=== PATIENT | female | born 1970 ===

== ENCOUNTER 2017-01-27 15:24 | Inpatient (IN) ==
[2017-01-27] MEDS ORDERED: 0.9 % Sodium Chloride 500 ML IVC ONE (16:39)
[2017-01-27 17:28] LABS: Basophils % 0.1 %
[2017-01-27 17:29] LABS: Eosinophils # 0.1 K/mcL (0.0-0.6); Eosinophils % 0.6 %; Immature Granulocytes % 1.4 % (0-4); Lymphocytes # 0.6 K/mcL (0.6-4.6); Mean Corpuscular HGB Conc 25.3 g/dL (31.6-35.5); Mean Corpuscular Hemoglobin 22.2 pg (28.0-33.3); Monocytes # 0.5 K/mcL (0.0-1.3); Monocytes % 4.3 %; Neutrophils # 9.8 K/mcL (1.6-8.9); Nucleated Red Blood Cells 0.3 /100 WBC (0); Red Blood Count 2.16 M/mcL (3.82-4.97); Red Cell Distribution Width 24.6 % (11.5-14.5); Segmented Neutrophils % 88.6 %
--- NOTE | 2017-01-27 17:38 | Emergency Department Note ---
START Narrative - START START: I examined this patient and my medical decision-making was reviewed with the ARCHIVES TECHNICIAN/PA/Advanced Practice Nurse/Resident Physician. I agree with the documented findings, disposition and treatment plan as described except to the extent set forth below.
[2017-01-27 17:40] LABS: BUN/Creatinine Ratio 11 (6-26); Blood Urea Nitrogen 7 mg/dL (7-20); Calcium 8.7 mg/dL (8.6-10.8); Carbon Dioxide 23 mEq/L (19-29); Chloride 105 mEq/L (98-109); Glucose 115 mg/dL (70-99); Osmolality,Calculated 283 (280-300); Potassium 3.2 mEq/L (3.5-4.5); Sodium 137 mEq/L (136-145); eGFR For African Americans > 60 (> 60); eGFR For Non-African Americans > 60 (> 60)
[2017-01-27 17:45] LABS: Hemoglobin 4.8 g/dL (11.5-15.4)
[2017-01-27 17:46] LABS: Platelet Count 123 K/mcL (140-400)
--- NOTE | 2017-01-27 17:50 | Emergency Department Note ---
Disposition Clinical Impression: Vaginal bleeding, Anemia Fibroids Qualifiers: Uterine leiomyoma location: unspecified location Qualified Code(s): D25.9 - Leiomyoma of uterus, unspecified Disposition: Admitted As Inpatient Condition: Good Referrals: Magda Ross CNP [Primary Care Provider] - Forms: ED Satisfaction Letter Time of Disposition: 19:50 General Adult HPI - General Chief complaint: ED Vaginal Bleeding Stated complaint: vaginal bleeding Time Seen by Provider: 01/27/17 16:14 Source: patient Mode of arrival: ambulatory Limitations: no limitations Nursing Notes Reviewed: Yes Vital Signs Reviewed: Yes - History of Present Illness HPI Narrative: 46-year-old female with past medical history fibroids presents for worsening vaginal bleeding over the last week and concern for anemia. She states that she is short of breath on exertion similar to when she needed a blood transfusion 2 years ago for her anemia. She states that in the last month she has only had 4 days where she was not on her menses. She states that yesterday in the day before she was using 20-25 pads per day and today is still requiring a pad every 1-2 hours today. She denies any headache, confusion, lightheadedness, chest pain or shortness of breath at rest, cough, abdominal pain, nausea or vomiting, changes in urination or bowel movements, rashes or edema. She has had a workup by hematology a couple years ago for bleeding disorders which was negative. She takes topical progesterone to try and help with the fibroids, it has not been helping recently. Pain Scale: 0 - Related Data Allergies Allergy/AdvReac Type Severity Reaction Status Date / Time No Known Allergies Allergy Verified 01/27/17 16:02 All systems ED: reviewed and negative except as stated. Past Medical History - Past Medical History Attestation: Yes The following information was validated with the patient. Source: patient Medical history: Reports: no medical history Psychiatric history: Reports: no psych history HAIR CUTTER history: Reports: no HAIR CUTTER history - Social History Smoking Status: Current every day smoker Smokeless Tobacco Status: No Alcohol use: Reports: none Drug use: Reports: none Physical Exam - Head Head exam: atraumatic, normocephalic, normal inspection - Eye Mild conjunctival pallor. Pupils equal round and reactive to light bilaterally. - ENT ENT exam: normal exam, normal oropharynx, mucous membranes moist - Neck Neck exam: Present: normal inspection, full ROM, trachea midline - Chest Chest inspection: Present: normal inspection, symmetric chest wall rise - Respiratory Respiratory exam: Clear to auscultation bilaterally without wheezes rales or rhonchi Cardiovascular Cardiovascular exam: Present: regular rate, normal rhythm, normal heart sounds - Abdominal Exam Mild lower abdominal tenderness with palpable tender mass on the right upper uterus. - Extremities Exam Extremities exam: Present: normal inspection, full ROM - Back Exam Back exam: Present: normal inspection, full ROM. Absent: tenderness, CVA tenderness (R), CVA tenderness (L) - Neurological Exam Neurological exam: Present: alert, oriented X3, CN II-XII intact - Psychiatric Psychiatric exam: Present: normal affect, normal mood - Skin Skin exam: Present: warm, dry, intact, pale. - General Limitations: no limitations General appearance: alert, in no apparent distress Course - Reevaluation(s) Reevaluation #1: Notified of hemoglobin of 4.8. 2 units of packed red blood cells ordered. Reevaluation #2: Patient is receiving first unit of packed red blood cells. Awaiting callback from HAIR CUTTER who was paged about [phone]. Pelvic ultrasound concerning for fibroids without any definite signs of uterine cancer. EKG shows sinus tachycardia at 111 with normal axis and intervals. No ST elevation or depression. No T-wave inversions or flattening. No significant change other than rate from 01/13/2015. Time: 19:32 Reevaluation #3: Patient accepted by Dr. Stone. He would like the patient given 40 mg of Megace. He is okay for her to eat and drink this evening until she is resuscitated for possible operation tomorrow. Time: 19:50 Vital Signs Temperature 100.3 F H 01/27/17 16:02 Pulse Rate 123 01/27/17 16:02 Respiratory Rate 14 01/27/17 16:02 Blood Pressure 145/82 01/27/17 16:02 O2 Sat by Pulse Oximetry 100 01/27/17 16:02 Temperature 100.5 F H 01/27/17 18:59 Pulse Rate 107 01/27/17 18:59 Respiratory Rate 16 01/27/17 18:59 Blood Pressure 121/62 01/27/17 18:59 O2 Sat by Pulse Oximetry 100 01/27/17 18:51 Oxygen Delivery Oxygen Delivery Room Air Medical Decision Making - Lab Data Result diagrams: 01/27/17 17:04 01/27/17 17:04 Lab Results 01/27/17 01/27/17 01/27/17 Range/Units 17:04 17:04 17:04 WBC 11.1 (4.3-11.1) K/mcL RBC 2.16 L (3.82-4.97) M/mcL Hgb 4.8 L* (11.5-15.4) g/dL Hct 19.0 L (35.3-44.9) % MCV 88.0 (83.0-100.0) fL MCH 22.2 L (28.0-33.3) pg MCHC 25.3 L (31.6-35.5) g/dL RDW 24.6 H (11.5-14.5) % Plt Count 123 L (140-400) K/mcL MPV 13.0 H (9.4-12.4) fL Immature Gran % 1.4 (0-4) % Seg Neutrophils % 88.6 % Lymphocytes % 5.0 % Monocytes % 4.3 % Eosinophils % 0.6 % Basophils % 0.1 % Neutrophils # 9.8 H (1.6-8.9) K/mcL Lymphocytes # 0.6 (0.6-4.6) K/mcL Monocytes # 0.5 (0.0-1.3) K/mcL Eosinophils # 0.1 (0.0-0.6) K/mcL Basophils # 0.0 (0.0-0.2) K/mcL Nucleated RBCs/100 WBC 0.3 H (0) /100 WBC Platelet Estimate Slight Decrease L (Normal) Polychromasia 3+ A (Not Present) Hypochromasia Present A (Not Present) Anisocytosis 3+ A (Not Present) Sodium 137 (136-145) mEq/L Potassium 3.2 L (3.5-4.5) mEq/L Chloride 105 (98-109) mEq/L Carbon Dioxide 23 (19-29) mEq/L BUN 7 (7-20) mg/dL Creatinine 0.64 (0.57-1.11) mg/dL Est GFR ( Amer) > 60 (> 60) Est GFR (Non-Af Amer) > 60 (> 60) BUN/Creatinine Ratio 11 (6-26) Glucose 115 H (70-99) mg/dL Calculated Osmolality 283 (280-300) Calcium 8.7 (8.6-10.8) mg/dL Serum , Qual Negative (Negative) Blood Type Antibody Screen Crossmatch 01/27/17 Range/Units 17:04 WBC (4.3-11.1) K/mcL RBC (3.82-4.97) M/mcL Hgb (11.5-15.4) g/dL Hct (35.3-44.9) % MCV (83.0-100.0) fL MCH (28.0-33.3) pg MCHC (31.6-35.5) g/dL RDW (11.5-14.5) % Plt Count (140-400) K/mcL MPV (9.4-12.4) fL Immature Gran % (0-4) % Seg Neutrophils % % Lymphocytes % % Monocytes % % Eosinophils % % Basophils % % Neutrophils # (1.6-8.9) K/mcL Lymphocytes # (0.6-4.6) K/mcL Monocytes # (0.0-1.3) K/mcL Eosinophils # (0.0-0.6) K/mcL Basophils # (0.0-0.2) K/mcL Nucleated RBCs/100 WBC (0) /100 WBC Platelet Estimate (Normal) Polychromasia (Not Present) Hypochromasia (Not Present) Anisocytosis (Not Present) Sodium (136-145) mEq/L Potassium (3.5-4.5) mEq/L Chloride (98-109) mEq/L Carbon Dioxide (19-29) mEq/L BUN (7-20) mg/dL Creatinine (0.57-1.11) mg/dL Est GFR ( Amer) (> 60) Est GFR (Non-Af Amer) (> 60) BUN/Creatinine Ratio (6-26) Glucose (70-99) mg/dL Calculated Osmolality (280-300) Calcium (8.6-10.8) mg/dL Serum , Qual (Negative) Blood Type A POSITIVE Antibody Screen NEGATIVE Crossmatch See Detail Critical Care Time Critical Care Time: Yes Total Critical Care Time: 35 Attestation: Critical care time spent in medical management as well as blood transfusions for severe anemia.
[2017-01-27 18:00] LABS: Anisocytosis 3+ (Not Present); Hypochromasia Present (Not Present); Polychromasia 3+ (Not Present)
[2017-01-27 18:01] LABS: Platelet Estimate Slight Decrease (Normal)
[2017-01-27] MEDS ORDERED: 0.9 % Sodium Chloride 250 ML ONE (18:40)
[2017-01-27] MEDS ORDERED: Potassium Citrate 10 MEQ TABLET.ER PO SCH (22:15)
--- NOTE | 2017-01-27 22:18 | OB/GYN History & Physical ---
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 She has orthostatic symptoms. In that she has a long history of fibroids and anemia and was in 2015 admitted with hemoglobin of 4.9 she has been on bioidentical progesterone and iron supplementation. She did see Dr. Zarate who had advised complete hysterectomy she desires ovarian preservation therefore did not follow up again. She has remote history of abnormal Pap smear and had what sounds like cryosurgery aside from the fibroids and bleeding has no other gynecologic history. Patient's uterus is quite enlarged and wide which was at this time would make minimally invasive surgery difficult. Patient really does not want progestational therapy and she would not be a good candidate for Mirena IUD or endometrial ablation because of enlarged fibroid uterus. Did discuss with patient possible Lupron therapy to stop her bleeding and shrink the uterus allowing a better chance of minimally invasive surgery she is interested in this and this will be arranged as an outpatient. (2) Hypokalemia Current visit: Yes Status: Acute Will replace (3) Anemia Current visit: Yes Status: Acute We will transfuse 2 units of packed red blood cells and recheck hemoglobin and hematocrit Qualifiers: Iron deficiency anemia type: chronic blood loss Qualified Code(s): D50.0 - Iron deficiency anemia secondary to blood loss (chronic) (4) Fibroids Current visit: Yes Status: Acute Qualifiers: Uterine leiomyoma location: unspecified location Qualified Code(s): D25.9 - Leiomyoma of uterus, unspecified History of Present Illness Chief complaint: Heavy vaginal bleeding, orthostatic symptoms, known uterine fibroids HPI: Ms. Olivo is a 46 year old female 2 para 2 female presents to emergency room with orthostatic symptoms. She has a long history of uterine fibroids and heavy irregular menses that has progressively worsened over the last 2 months. She states she has been saturating depends and passing clots the size of her fist for the last 6-8 weeks. She changes up to 15 depends a day. She has been on bioidentical egestion cream that was prescribed to her by a [employer] company in [place]. She saw Dr. Elliot Hardy 6 weeks ago enlarged fibroid uterus she desired to proceed with total hysterectomy which she declined because she did not want ovarian removal. She has seen Dr. Zarate several years ago and an ultrasound at that point also showed enlarged fibroid uterus. She did in 2014 and have a hemoglobin of 4.9 received transfusion of 1 unit of packed red blood cells and iron infusion and had not had any other orthostatic symptoms until recently. Of note she has had a negative workup for bleeding disorders. She has been on K2 for bone health 3 times a day ferrous sulfate 3-5 times a day. When seen in the year this evening she did have other orthostatic symptoms and was hypotensive therefore was admitted for transfusion. Ultrasound in the ER did show uterus to be 17.2 x 11.4 x 10.1 cm with a large fibroid and an 8 millimeter endometrial stripe. She had normal ovaries. Of note patient does have low-grade temperature to 100.3 in the ER she has no elevated white count she has no obvious infection. Her uterus is nontender and she has no abnormal vaginal discharge. Past Med Surg Social Fam HX - Past Medical History Source: patient Medical history: other (Urticaria pigmentosa, anemia) Psychiatric history: no psych history - Past Surgical History Surgical History: other (Was taken to the extraction) - Social History Smoking Status: Current every day smoker Smokeless Tobacco Status: No Alcohol use: none Drug use: none Obstetrical History - Pregnancies : 2 Para: 2 Medications and Allergies Docusate [Colace] 100 mg PO DAILY PRN 01/27/17 [History] Ferrous Sulfate 325 mg PO TID 01/27/17 [History] Ferrous Sulfate [Slow Fe] 142 mg PO TID 01/27/17 [History] Progesterone Cream 1 appl TP DAILY 01/27/17 [History] Vitamin K2 100 mcg PO BID 01/27/17 [History] Allergies No Known Allergies Allergy (Verified 01/27/17 16:02) Review of System OB All systems PM: reviewed and no additional remarkable complaints except as stated Exam - Vital Signs Vital signs: Initial Vital Signs Temp Pulse Resp BP Pulse Ox 100.3 F H 123 14 145/82 100 01/27/17 16:02 01/27/17 16:02 01/27/17 16:02 01/27/17 16:02 01/27/17 16:02 - Constitutional Constitutional: well developed - HEENT HEENT: Pallor, Mucus Membranes Dry - Neck Neck exam: full ROM - Lungs Respiratory exam: CTAB - Cardiovascular Cardiovascular exam: RRR - Abdomen Abdomen: Present: bowel sounds normal, mass Abdomen detail: right lower quadrant: tenderness (Enlarged fibroid uterus palpated) - Extremities Extremities exam: full ROM Deep Tendon Reflex Grade: 2+ Normal Results Result Diagrams: 01/27/17 17:04 01/27/17 17:04 Abnormal lab results RBC 2.16 M/mcL (3.82-4.97) L 01/27/17 17:04 Hgb 4.8 g/dL (11.5-15.4) L* 01/27/17 17:04 Hct 19.0 % (35.3-44.9) L 01/27/17 17:04 MCH 22.2 pg (28.0-33.3) L 01/27/17 17:04 MCHC 25.3 g/dL (31.6-35.5) L 01/27/17 17:04 RDW 24.6 % (11.5-14.5) H 01/27/17 17:04 Plt Count 123 K/mcL (140-400) L 01/27/17 17:04 MPV 13.0 fL (9.4-12.4) H 01/27/17 17:04 Neutrophils # 9.8 K/mcL (1.6-8.9) H 01/27/17 17:04 Nucleated RBCs/100 WBC 0.3 /100 WBC (0) H 01/27/17 17:04 Platelet Estimate Slight Decrease (Normal) L 01/27/17 17:04 Polychromasia 3+ (Not Present) A 01/27/17 17:04 Hypochromasia Present (Not Present) A 01/27/17 17:04 Anisocytosis 3+ (Not Present) A 01/27/17 17:04 Potassium 3.2 mEq/L (3.5-4.5) L 01/27/17 17:04 Glucose 115 mg/dL (70-99) H 01/27/17 17:04 All other labs normal.
[2017-01-28 04:05] LABS: Basophils % 0.2 %; Hemoglobin 6.3 g/dL (11.5-15.4); Mean Platelet Volume 11.5 fL (9.4-12.4)
[2017-01-28 04:07] LABS: Eosinophils # 0.1 K/mcL (0.0-0.6); Eosinophils % 1.2 %; Hematocrit 22.1 % (35.3-44.9); Immature Granulocytes % 1.3 % (0-4); Lymphocytes # 0.7 K/mcL (0.6-4.6); Lymphocytes % 6.9 %; Mean Corpuscular HGB Conc 28.5 g/dL (31.6-35.5); Mean Corpuscular Hemoglobin 25.3 pg (28.0-33.3); Mean Corpuscular Volume 88.8 fL (83.0-100.0); Monocytes # 0.6 K/mcL (0.0-1.3); Monocytes % 6.3 %; Nucleated Red Blood Cells 0.2 /100 WBC (0); Platelet Count 100 K/mcL (140-400); Red Blood Count 2.49 M/mcL (3.82-4.97); Red Cell Distribution Width 20.9 % (11.5-14.5); Segmented Neutrophils % 84.1 %
[2017-01-28 04:47] LABS: Anisocytosis 2+ (Not Present); Hypochromasia Present (Not Present); Polychromasia 2+ (Not Present)
[2017-01-28 04:48] LABS: Platelet Estimate Decreased (Normal)
--- NOTE | 2017-01-28 06:10 | Discharge Summary ---
Date of Encounter: 01/28/17 Time of Encounter: 06:11 - Discharge Diagnosis (1) Menometrorrhagia Priority: Primary Status: Acute Comments: Will arrange for Lupron injection prior to LAVH as out pt. (2) Hypokalemia Priority: Secondary Status: Acute (3) Anemia Priority: Secondary Status: Acute Comments: Vaginal bleeding has stoped, will transfuse one more unit PRBC's then trasfuse. Qualifiers: Iron deficiency anemia type: chronic blood loss Qualified Code(s): D50.0 - Iron deficiency anemia secondary to blood loss (chronic) (4) Fibroids Priority: Primary Status: Acute Qualifiers: Uterine leiomyoma location: unspecified location Qualified Code(s): D25.9 - Leiomyoma of uterus, unspecified - Discharge Medications Home Medications: Docusate [Colace] 100 mg PO DAILY PRN 01/27/17 [History] Ferrous Sulfate 325 mg PO TID 01/27/17 [History] Ferrous Sulfate [Slow Fe] 142 mg PO TID 01/27/17 [History] Progesterone Cream 1 appl TP DAILY 01/27/17 [History] Vitamin K2 100 mcg PO BID 01/27/17 [History] Allergies/Adverse Reactions: Allergies No Known Allergies Allergy (Verified 01/27/17 16:02) Data Procedures and tests throughout hospitalization: Laboratory Tests 01/28/17 03:54 WBC 9.5 RBC 2.49 L Hgb 6.3 L D Hct 22.1 L MCV 88.8 MCH 25.3 L MCHC 28.5 L RDW 20.9 H Plt Count 100 L MPV 11.5 Immature Gran % 1.3 Seg Neutrophils % 84.1 Lymphocytes % 6.9 Monocytes % 6.3 Eosinophils % 1.2 Basophils % 0.2 Neutrophils # 8.0 Lymphocytes # 0.7 Monocytes # 0.6 Eosinophils # 0.1 Basophils # 0.0 Nucleated RBCs/100 WBC 0.2 H Platelet Estimate Decreased L Polychromasia 2+ A Hypochromasia Present A Anisocytosis 2+ A Labs on day of discharge: Labs from last 24 hours 01/28/17 03:54 WBC 9.5 RBC 2.49 L Hgb 6.3 L D Hct 22.1 L MCV 88.8 MCH 25.3 L MCHC 28.5 L RDW 20.9 H Plt Count 100 L MPV 11.5 Immature Gran % 1.3 Seg Neutrophils % 84.1 Lymphocytes % 6.9 Monocytes % 6.3 Eosinophils % 1.2 Basophils % 0.2 Neutrophils # 8.0 Lymphocytes # 0.7 Monocytes # 0.6 Eosinophils # 0.1 Basophils # 0.0 Nucleated RBCs/100 WBC 0.2 H Platelet Estimate Decreased L Polychromasia 2+ A Hypochromasia Present A Anisocytosis 2+ A - Impressions No further bleeding, ambulating and still some diziness. Desires transfusion of one more unit PRBC's. Date of admission: 01/27/17 20:01 Primary care physician: Magda Ross - Patient Status Disposition: Home, Self-Care Condition: Good Functional capacity at discharge: independent ambulation Overall status at discharge: patient is progressing back to baseline - Discharge Instructions Follow Up With: Barber Stone MD [Partnered Physician] - Additional Instructions: In 1-2 weeks, hopefully Lupron injection will be arranged before visit. - Diet and Activity Activity: ambulate only with your walker Diet: advance to your usual diet Hospital Course PATTERNMAKER ALL AROUND Time Attestation: Total time spent providing and/or coordinating discharge services: Exam - Constitutional Vitals: Temp Pulse Resp BP Pulse Ox 98.9 F 102 16 112/67 99 01/28/17 04:02 01/28/17 04:02 01/28/17 04:02 01/28/17 04:02 01/28/17 04:02 General appearance IM: A&O X 3 - Respiratory Respiratory exam: Present: CTAB - Cardiovascular Cardiovascular exam IM: Present: RRR - GI/Abdominal GI/Abdominal exam IM: normal bowel sounds - External exam: ecchymosis Uterine Tone: Boggy - Extremities Exam Extremities exam IM: Present: full ROM - Neurological Exam Neurological exam: oriented X3
[2017-01-28 09:31] VITALS: BP 104/54
--- NOTE | 2017-01-28 13:03 | Electrocardiograph Report ---
[address] [address] Test Date: 2017-01-27 Pat Name: Sherin Olivo Department: 102 Room: [facility] Gender: F [employer]pent[employer]: : 1970 Requested By: Lupillo Verma Order Number: [id number] Reading MD: Charlie Rojas MD Measurements Intervals [place] Rate: 111 P: 67 ID: [id number] QRS: 22 QRSD: 89 T: 61 QT: 336 QTc: 401 Interpretive Statements SINUS TACHYCARDIA INDETERMINATE AXIS Electronically Signed On 01-28-2017 13:01:16 EDT by Charlie Rojas MD
== END 2017-01-28 12:50 | disposition home or self-care (01) | DRG 812 ==
LOC: EMEROO 15:24 → 1NENUOBS 15:24 → 1NENUPED 20:50
PROVIDERS: ADMIT Obstetrics & Gynecology; ATTEND Obstetrics & Gynecology

== ENCOUNTER 2017-02-10 21:30 | Inpatient (IN) ==
[2017-02-10] MEDS ORDERED: Ibuprofen 600 MG TABLET PO PRN (22:43)
[2017-02-11] MEDS ORDERED: 0.9 % Sodium Chloride Mini Bag 100 ML ONE (00:58)
[2017-02-11] MEDS: D5% in Lactated Ringers 1,000 ML IVC SCH ×3 (03:46→20:40)
[2017-02-11 07:13] LABS: Hematocrit 21.9 % (35.3-44.9); Hemoglobin 6.3 g/dL (11.5-15.4)
[2017-02-11] MEDS ORDERED: 0.9 % Sodium Chloride 1,000 ML ONE (07:37)
--- NOTE | 2017-02-11 11:00 | Anesthesia Evaluation PreOp ---
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 History: Denies Any Significant HX Other Medical History: Denies Any Significant HX Anesthesia History: Past Anesthesia (denies fh anesthetic complications) Alcohol Use: none Drug use: none Medications and Allergies Ferrous Sulfate 325 mg PO TID 01/27/17 [History] Progesterone Cream 1 appl TP DAILY 01/27/17 [History] Allergies No Known Allergies Allergy (Verified 01/27/17 16:02) - Meds/Allergy Pre-op Review Medications Reviewed: Yes Allergies Reviewed: Yes Beta Blockers on Current Med List: No Anesthesia Results - Labs 02/11/17 07:05 Laboratory Tests 02/09/17 12:14 Sodium 138 Potassium 3.9 Creatinine 0.63 Calcium 8.5 L - Imaging EKG: report reviewed (01/14) Anesthesia Exam Vital Signs/O2 Sat/Glucose, Most Current Temp Pulse Pulse Resp BP Pulse Ox 02/11/17 10:29 98.7 F 89 18 107/67 98 02/11/17 09:55 98.8 F 98 16 120/66 96 02/11/17 08:05 99.1 F 96 16 101/68 97 02/11/17 07:55 98.6 F 96 96 16 103/64 98 02/11/17 07:50 98.6 F 96 16 103/64 98 Height: 1.57 Weight: 92 NPO (# of Hours): >8 - HEENT Pupil (Motor): Pupils equal, EOMI Mallampati: II Teeth: Normal Oral Opening: Greater than 3 - HISTORIC SITE ADMINISTRATOR LOC: Oriented HISTORIC SITE ADMINISTRATOR Motor: Normal RUE, Normal LUE, Normal RLE, Normal LLE, Normal Face HISTORIC SITE ADMINISTRATOR Sensory: Normal: RUE, LUE, RLE, LLE, Face - Cardiac Rhythm: Regular Murmur: None - Pulmonary Breath Sounds: bilateral Clear Respiratory Effort: Symmetrical Anesthesia Assess/Plan ASA Score: 2 (f/u with cbc after 4th unit transfusion. if additional units given, considered dilutional thrombocytopenia and transfuse plts), E Modified [place] Scale for Level of Consciousness: Cooperative, oriented, and tranquil Anesthetic Plan: General Monitoring Plan: Standard Monitors Recovery Plan: PACU
[2017-02-11] MEDS ORDERED: Ringers Solution, Lactated 1,000 ML IVC SCH (11:30)
--- NOTE | 2017-02-11 12:26 | OB/GYN History & Physical ---
Date of Encounter: 02/11/17 Time of Encounter: 12:23 Assessment and Plan (1) Anemia Current visit: Yes Status: Acute Qualifiers: Anemia type: iron deficiency Iron deficiency anemia type: chronic blood loss Qualified Code(s): D50.0 - Iron deficiency anemia secondary to blood loss (chronic) (2) Fibroids Current visit: No Status: Acute Patient's 46-year-old 2 para 2 female with 17 week size fibroid uterus with menometrorrhagia resistant to medical therapy. Discussed with patient options decision made to proceed with laparotomy with supracervical hysterectomy and bilateral salpingectomy. Patient is aware operative risks and desires to proceed with surgery. She has been admitted and transfused down preoperatively with 4 units of packed red blood cells. Qualifiers: Uterine leiomyoma location: unspecified location Qualified Code(s): D25.9 - Leiomyoma of uterus, unspecified (3) Menometrorrhagia Current visit: No Status: Acute History of Present Illness Chief complaint: Menometrorrhagia, profound anemia, 17 week size fibroid uterus HPI: Ms. Olivo is a 46 year old female female with symptomatic fibroid uterus admitted for preop transfusion secondary to profound anemia with hemoglobin of 5.8. Patient with known large fibroid uterus recent hospitalization was initially consult was for anemia to 4.8. Patient has a known enlarged fibroid uterusin previously had profound anemia as well. We initially discussed treatment with Lupron to shrink the uterus however patient elected not to because of side effects. We also discussed Megace which she initially tried however could not tolerate it therefore she now presents with continued heavy bleeding and recurrent anemia for definitive surgical management. She has researched this procedure and does request supracervical hysterectomy she also requests ovarian preservation. Patient has no history of abnormal Pap smears. Past Med Surg Social Fam HX - Past Medical History Source: patient, old records reviewed Medical history: other (Urticaria pigmentosa, anemia) Psychiatric history: no psych history - Past Surgical History Surgical History: other (Was taken to the extraction) - Social History Smoking Status: Current every day smoker Smokeless Tobacco Status: No Alcohol use: none Drug use: none Obstetrical History - Pregnancies : 2 Para: 2 Medications and Allergies Ferrous Sulfate 325 mg PO TID 01/27/17 [History] Progesterone Cream 1 appl TP DAILY 01/27/17 [History] Allergies No Known Allergies Allergy (Verified 01/27/17 16:02) Exam - Vital Signs Vital signs: Initial Vital Signs Temp Pulse BP Pulse Ox 98.9 F 129 134/69 100 02/10/17 22:00 02/10/17 22:00 02/10/17 22:00 02/10/17 22:00 - Constitutional Constitutional: well developed, well nourished - HEENT HEENT: EOMI, PERRL - Neck Neck exam: full ROM - Lungs Respiratory exam: CTAB - Cardiovascular Cardiovascular exam: RRR - Abdomen Abdomen: Present: non tender, mass - Extremities Extremities exam: full ROM - Uterus Uterus exam: Present: enlarged Results Result Diagrams: 02/11/17 07:05 Abnormal lab results Hgb 6.3 g/dL (11.5-15.4) L 02/11/17 07:05 Hct 21.9 % (35.3-44.9) L 02/11/17 07:05 All other labs normal. - VTE Reasons for not Prescribing Prophylaxis: Treatment not Indicated - Low risk for VTE
[2017-02-11] MEDS ORDERED: *HR* Rocuronium Bromide 50 MG/5 ML VIAL ONE (12:54)
[2017-02-11] MEDS ORDERED: Lidocaine -MPF 2% 2 ML VIAL ONE (12:54)
[2017-02-11] MEDS ORDERED: *HR* Midazolam HCl 2 MG/2 ML VIAL ONE (12:54)
[2017-02-11] MEDS ORDERED: *HR* FentaNYL (PF) 100 MCG/2 ML VIAL ONE (12:54)
[2017-02-11] MEDS ORDERED: Lidocaine -MPF 4% 5 ML AMPUL ONE (12:54)
[2017-02-11] MEDS ORDERED: Dexamethasone 4 MG/ML VIAL ONE (12:54)
[2017-02-11] MEDS ORDERED: *HR* Succinylcholine 200 MG/10 ML VIAL IVP ONE (12:54)
[2017-02-11] MEDS ORDERED: Ondansetron 4 MG/2 ML VIAL ONE (12:54)
[2017-02-11] MEDS ORDERED: *HR* Propofol 200 MG/20 ML VIAL IVP ONE ×2 (12:54→15:39)
[2017-02-11] MEDS ORDERED: Neostigmine Methylsulfate 3 MG/3 ML SYRINGE ONE (12:55)
[2017-02-11] MEDS ORDERED: Albuterol 2.5 MG/3 ML NEBULIZER ONE (13:10)
[2017-02-11] MEDS ORDERED: Albuterol 2.5 MG/3 ML NEBULIZER IH ONE (13:27)
[2017-02-11 13:42] LABS: Basophils % 0.3 %; Eosinophils # 0.1 K/mcL (0.0-0.6); Eosinophils % 0.9 %; Hematocrit 27.6 % (35.3-44.9); Lymphocytes # 0.9 K/mcL (0.6-4.6); Lymphocytes % 9.4 %; Mean Corpuscular HGB Conc 29.7 g/dL (31.6-35.5); Mean Corpuscular Hemoglobin 25.4 pg (28.0-33.3); Mean Corpuscular Volume 85.4 fL (83.0-100.0); Mean Platelet Volume 12.4 fL (9.4-12.4); Monocytes # 0.6 K/mcL (0.0-1.3); Neutrophils # 7.9 K/mcL (1.6-8.9); Nucleated Red Blood Cells 0.5 /100 WBC (0); Platelet Count 149 K/mcL (140-400); Red Blood Count 3.23 M/mcL (3.82-4.97); Red Cell Distribution Width 17.2 % (11.5-14.5); Segmented Neutrophils % 82.4 %
[2017-02-11 13:43] LABS: Hemoglobin 8.2 g/dL (11.5-15.4)
[2017-02-11] MEDS ORDERED: *HR* HYDROmorphone 2 MG/ML SYRINGE ONE (14:10)
[2017-02-11] MEDS ORDERED: ceFAZolin 2,000 MG in D5% in Water (Mini-Bag+) 100 ML IVPB ONE (14:57)
[2017-02-11] MEDS ORDERED: *HR* HYDROmorphone (PF) 1 MG/ML SYRINGE ONE (16:17)
[2017-02-11] MEDS: *HR* HYDROmorphone (PF) 1 MG/ML SYRINGE IVP PRN ×6 (16:18→22:45)
[2017-02-11] MEDS ORDERED: *HR* Promethazine 25 MG/ML VIAL IVP PRN (16:18)
--- NOTE | 2017-02-11 16:19 | OB/GYN Procedure Note ---
Hysterectomy - Diagnosis Date of procedure: 02/11/17 Hysterectomy pre-op: menorrhagia, symptomatic leiomyomata, other (Profound anemia) Post-op diagnosis: same - Procedure Hysterectomy procedure: total abdominal hysterectomy (Supracervical), bilateral salpingectomy Surgeon: Barber Stone Sewing Machine Repairer Helper: Tiera Tejada Anesthesia Type: General Estimated blood loss (cc): 600 Complications: none Fluids: crystalloid (2000 NS, 2 units PRBC's ( 4 units preop)), blood Specimens: uterus, right fallopian tube, left fallopian tube Findings: Enlarged uterus, adenomyosis by frozen section Disposition: PACU Narrative: Patient's a 46-year-old female with known enlarged uterus very heavy irregular bleeding for last several years. This bleeding is reasonable become heavier she was recently admitted to the hospital with a hemoglobin of 4.8. That time she was transfused 3 units packed red blood cells discharged home on Megace. Consideration had been given to Lupron because of possible side effects she declined this. She did not tolerate Megace and it did not stop her bleeding. She was readmitted yesterday with a hemoglobin of 5.8. She was admitted preoperatively for planned supracervical hysterectomy (per patient choice) and bilateral salpingectomy. She desired ovarian preservation. She was aware of operative risks and signed appropriate consent. Her to surgery she received 4 units of packed red blood cells and hemoglobin preoperatively was 8.3. Description procedure: Patient was taken operating room where general anesthesia was administered. She is prepped draped in usual sterile fashion bladder was drained of clear urine. Scalpel was used to make pain still skin incision was sharply taken down the rectus fascia. Fascia was incised midline fascial incision was extended bilaterally. Plan was developed between rectus muscle rectus fascia superiorly distally rectus muscles were divided and peritoneum was entered sharply uterus was enlarged to just below the umbilicus smooth in contour both fallopian tubes and ovaries were normal. Uterus was delivered abdominally and LigaSure was used to transect the utero-ovarian ligaments bilaterally. LigaSure was then used across round ligaments bilaterally cauterized and transected as we went. This point skeletonized the broad ligaments and bladder flap was developed and lower uterine segment. The broad ligaments were cauterized doubly and transected with LigaSure bilaterally. This point we were at the level of internal cervical os. Bovie was used to slowly transect across the cervical stump. As the last bit of cervix was transected and the uterus was removed we had not of bright red vaginal bleeding in the cervix retracted into the pelvis. Suction was performed and grasped on the pelvis was able to feel the cervical stump. Cervical stump was pulled upwards and from the left aspect of the cervix there was a large caliper artery with bright red vaginal bleeding. Curved Evi clamps were doubly taken across this ligament. There call was used to grasp the cervix and was pulled upwards. 0 Vicryl sutures were taken around the 2 curved Evi clamps these were removed and hemostasis was ensured. Vicryl sutures placed at the corners of the cervix on each side and the cervix was pulled upwards. Bovie was used to cauterize the endocervical canal. Cervix was then oversewn with 0 Vicryl suture with several o Vicryl [id number] stitches. This point third irrigation was performed hemostasis was ensured. Fascia was closed with oh loop PDS. Irrigation was performed hemostasis was ensured deep subcutaneous tissue was closed with 2-0 chromic in interrupted sutures. Skin edges reapproximated with 4-0 Vicryl. All sponge and needle counts are correct patient was taken recovery in good condition.
[2017-02-11 16:56] LABS: INR 1.1; Prothrombin Time 12.3 Seconds (9.4-12.1)
[2017-02-11] MEDS ORDERED: Acetaminophen IV 1,000 MG/100 ML INFUS..BTL IVPB ONE (17:00)
[2017-02-11] MEDS ORDERED: *HR* HYDROmorphone (PF) 1 MG/ML SYRINGE IVP PRN (17:00)
[2017-02-11 17:02] LABS: Activated Partial Thrombo Time 18.4 Seconds (26.0-36.0)
[2017-02-11 17:09] LABS: Basophils % 0.2 %; Eosinophils % 0.2 %; Hematocrit 30.5 % (35.3-44.9); Hemoglobin 9.4 g/dL (11.5-15.4); Immature Granulocytes % 0.9 % (0-4); Immature Platelets 8.6 % (1.1-6.1); Lymphocytes # 0.5 K/mcL (0.6-4.6); Lymphocytes % 2.9 %; Mean Corpuscular HGB Conc 30.8 g/dL (31.6-35.5); Mean Corpuscular Hemoglobin 26.8 pg (28.0-33.3); Mean Corpuscular Volume 86.9 fL (83.0-100.0); Mean Platelet Volume 12.8 fL (9.4-12.4); Monocytes # 0.3 K/mcL (0.0-1.3); Monocytes % 1.7 %; Nucleated Red Blood Cells 0.2 /100 WBC (0); Platelet Count 128 K/mcL (140-400); Red Blood Count 3.51 M/mcL (3.82-4.97); Segmented Neutrophils % 94.1 %
[2017-02-11 17:10] LABS: Neutrophils # 17.1 K/mcL (1.6-8.9)
--- NOTE | 2017-02-11 17:38 | Anesthesia Evaluation Post Op ---
Date of Encounter: 02/11/17 Time of Encounter: 17:38 - Vital Signs Vital Signs: Vital Signs/O2 Sat/Glucose, Most Current Temp Pulse Resp BP Pulse Ox 02/11/17 17:28 92 18 128/69 96 02/11/17 17:18 94 18 135/73 96 02/11/17 17:08 98.2 F 95 16 130/68 96 02/11/17 16:58 96 18 138/72 96 02/11/17 16:48 93 18 132/74 97 02/11/17 16:38 97.9 F 93 22 125/82 97 02/11/17 16:28 94 18 143/80 97 02/11/17 16:18 97 22 143/76 97 02/11/17 16:08 98.6 F 99 20 128/72 98 - Lungs Lungs: Clear Ascult./Percussion - Airway Airway: Non-obstructed - Cardiovascular Regular Rate - Mental Status Mental Status: Alert & Oriented, Answers Appropriately - Pain Pain Scale: 3 - Nausea Vomiting Nausea Vomiting: Not Present - Hydration Hydration: Ice chips - Discharge PostOp Status: Transfer Patient to floor
[2017-02-11 17:43] LABS: Hypochromasia Present (Not Present); Platelet Estimate Normal (Normal); Polychromasia 1+ (Not Present)
[2017-02-11] MEDS ORDERED: Ondansetron 4 MG/2 ML VIAL IVP PRN (18:11)
[2017-02-11] MEDS ORDERED: Naloxone 0.4 MG/ML INJ IVP PRN (18:11)
[2017-02-11] MEDS ORDERED: D5% in Lactated Ringers 1,000 ML IVC SCH (18:11)
[2017-02-11 20:32] LABS: Hematocrit 31.6 % (35.3-44.9); Hemoglobin 9.6 g/dL (11.5-15.4); Mean Corpuscular HGB Conc 30.4 g/dL (31.6-35.5); Mean Corpuscular Hemoglobin 26.4 pg (28.0-33.3); Mean Corpuscular Volume 87.1 fL (83.0-100.0); Mean Platelet Volume 12.7 fL (9.4-12.4); Platelet Count 135 K/mcL (140-400); Red Blood Count 3.63 M/mcL (3.82-4.97); Red Cell Distribution Width 16.9 % (11.5-14.5)
[2017-02-11] MEDS: Ibuprofen 600 MG TABLET PO PRN (21:22)
[2017-02-12] MEDS: D5% in Lactated Ringers 1,000 ML IVC SCH (03:21)
[2017-02-12] MEDS: *HR* OxyCODONE/APAP 5/325 TABLET PO PRN ×3 (03:47→11:54)
[2017-02-12 04:40] LABS: Basophils % 0.2 %; Eosinophils % 0.1 %; Hematocrit 28.4 % (35.3-44.9); Hemoglobin 8.7 g/dL (11.5-15.4); Immature Granulocytes % 0.6 % (0-4); Lymphocytes # 0.8 K/mcL (0.6-4.6); Lymphocytes % 7.2 %; Mean Corpuscular HGB Conc 30.6 g/dL (31.6-35.5); Mean Corpuscular Hemoglobin 26.8 pg (28.0-33.3); Mean Corpuscular Volume 87.4 fL (83.0-100.0); Mean Platelet Volume 11.5 fL (9.4-12.4); Monocytes # 0.8 K/mcL (0.0-1.3); Monocytes % 7.5 %; Nucleated Red Blood Cells 0.4 /100 WBC (0); Platelet Count 112 K/mcL (140-400); Red Blood Count 3.25 M/mcL (3.82-4.97); Red Cell Distribution Width 17.1 % (11.5-14.5); Segmented Neutrophils % 84.4 %
[2017-02-12] MEDS: Ibuprofen 600 MG TABLET PO PRN ×2 (06:36→12:01)
--- NOTE | 2017-02-12 07:36 | Discharge Summary ---
Date of Encounter: 02/12/17 Time of Encounter: 07:36 - Discharge Diagnosis (1) Anemia Priority: Primary Status: Acute Comments: Pt hemodynamically stable without obvious bleeding, abdomen is soft. Will recheck hgb 14:00 Qualifiers: Anemia type: iron deficiency Iron deficiency anemia type: chronic blood loss Qualified Code(s): D50.0 - Iron deficiency anemia secondary to blood loss (chronic) (2) Fibroids Priority: Primary Status: Acute Qualifiers: Uterine leiomyoma location: unspecified location Qualified Code(s): D25.9 - Leiomyoma of uterus, unspecified (3) Menometrorrhagia Priority: Secondary Status: Acute (4) S/p partial hysterectomy with remaining cervical stump Priority: Primary Status: Acute Comments: Pt doing well, possible d/c home later today. - Discharge Medications Prescriptions: OxyCODONE/APAP 5/325 [Percocet 5/325 MG] 1 each PO Q4HR PRN #40 tablet PRN Reason: post op pain Ibuprofen [Motrin] 600 mg PO Q6HR PRN #40 tablet PRN Reason: post op pain Home Medications: Ferrous Sulfate 325 mg PO TID 01/27/17 [History] Progesterone Cream 1 appl TP DAILY 01/27/17 [History] Ibuprofen [Motrin] 600 mg PO Q6HR PRN #40 tablet 02/12/17 [Rx] OxyCODONE/APAP 5/325 [Percocet 5/325 MG] 1 each PO Q4HR PRN #40 tablet 02/12/17 [Rx] Allergies/Adverse Reactions: Allergies No Known Allergies Allergy (Verified 01/27/17 16:02) Data Procedures and tests throughout hospitalization: Laboratory Tests 02/10/17 02/11/17 02/11/17 08:29 07:05 13:30 WBC 9.5 RBC 3.23 L Hgb 6.3 L 8.2 L D Hct 21.9 L 27.6 L MCV 85.4 MCH 25.4 L MCHC 29.7 L RDW 17.2 H Plt Count 149 MPV 12.4 Immature Gran % 1.0 Seg Neutrophils % 82.4 Lymphocytes % 9.4 Monocytes % 6.0 Eosinophils % 0.9 Basophils % 0.3 Neutrophils # 7.9 Lymphocytes # 0.9 Monocytes # 0.6 Eosinophils # 0.1 Basophils # 0.0 Nucleated RBCs/100 WBC 0.5 H Platelet Estimate Immature Plt Fraction Polychromasia Hypochromasia PT INR APTT Serum , Qual Specimen Rejected MTS Gel Crossmatch See Detail 02/11/17 02/11/17 02/11/17 13:30 16:24 16:24 WBC RBC Hgb Hct MCV MCH MCHC RDW Plt Count MPV Immature Gran % Seg Neutrophils % Lymphocytes % Monocytes % Eosinophils % Basophils % Neutrophils # Lymphocytes # Monocytes # Eosinophils # Basophils # Nucleated RBCs/100 WBC Platelet Estimate Immature Plt Fraction Polychromasia Hypochromasia PT 12.3 H INR 1.1 APTT 18.4 L Serum , Qual Negative Specimen Rejected Clotted MTS Gel Crossmatch 02/11/17 02/11/17 02/12/17 16:59 20:11 04:24 WBC 18.2 H D 15.5 H 10.6 RBC 3.51 L 3.63 L 3.25 L Hgb 9.4 L 9.6 L 8.7 L Hct 30.5 L 31.6 L 28.4 L MCV 86.9 87.1 87.4 MCH 26.8 L 26.4 L 26.8 L MCHC 30.8 L 30.4 L 30.6 L RDW 17.0 H 16.9 H 17.1 H Plt Count 128 L 135 L 112 L MPV 12.8 H 12.7 H 11.5 Immature Gran % 0.9 0.6 Seg Neutrophils % 94.1 84.4 Lymphocytes % 2.9 7.2 Monocytes % 1.7 7.5 Eosinophils % 0.2 0.1 Basophils % 0.2 0.2 Neutrophils # 17.1 H 9.0 H Lymphocytes # 0.5 L 0.8 Monocytes # 0.3 0.8 Eosinophils # 0.0 0.0 Basophils # 0.0 0.0 Nucleated RBCs/100 WBC 0.2 H 0.4 H Platelet Estimate Normal Immature Plt Fraction 8.6 H Polychromasia 1+ A Hypochromasia Present A PT INR APTT Serum , Qual Specimen Rejected MTS Gel Crossmatch Labs on day of discharge: Labs from last 24 hours 02/12/17 02/11/17 02/11/17 04:24 20:11 16:59 WBC 10.6 15.5 H 18.2 H D RBC 3.25 L 3.63 L 3.51 L Hgb 8.7 L 9.6 L 9.4 L Hct 28.4 L 31.6 L 30.5 L MCV 87.4 87.1 86.9 MCH 26.8 L 26.4 L 26.8 L MCHC 30.6 L 30.4 L 30.8 L RDW 17.1 H 16.9 H 17.0 H Plt Count 112 L 135 L 128 L MPV 11.5 12.7 H 12.8 H Immature Gran % 0.6 0.9 Seg Neutrophils % 84.4 94.1 Lymphocytes % 7.2 2.9 Monocytes % 7.5 1.7 Eosinophils % 0.1 0.2 Basophils % 0.2 0.2 Neutrophils # 9.0 H 17.1 H Lymphocytes # 0.8 0.5 L Monocytes # 0.8 0.3 Eosinophils # 0.0 0.0 Basophils # 0.0 0.0 Nucleated RBCs/100 WBC 0.4 H 0.2 H Platelet Estimate Normal Immature Plt Fraction 8.6 H Polychromasia 1+ A Hypochromasia Present A PT INR APTT Serum , Qual Specimen Rejected MTS Gel Crossmatch 02/11/17 02/11/17 02/11/17 16:24 16:24 13:30 WBC RBC Hgb Hct MCV MCH MCHC RDW Plt Count MPV Immature Gran % Seg Neutrophils % Lymphocytes % Monocytes % Eosinophils % Basophils % Neutrophils # Lymphocytes # Monocytes # Eosinophils # Basophils # Nucleated RBCs/100 WBC Platelet Estimate Immature Plt Fraction Polychromasia Hypochromasia PT 12.3 H INR 1.1 APTT 18.4 L Serum , Qual Negative Specimen Rejected Clotted MTS Gel Crossmatch 02/11/17 02/10/17 13:30 08:29 WBC 9.5 RBC 3.23 L Hgb 8.2 L D Hct 27.6 L MCV 85.4 MCH 25.4 L MCHC 29.7 L RDW 17.2 H Plt Count 149 MPV 12.4 Immature Gran % 1.0 Seg Neutrophils % 82.4 Lymphocytes % 9.4 Monocytes % 6.0 Eosinophils % 0.9 Basophils % 0.3 Neutrophils # 7.9 Lymphocytes # 0.9 Monocytes # 0.6 Eosinophils # 0.1 Basophils # 0.0 Nucleated RBCs/100 WBC 0.5 H Platelet Estimate Immature Plt Fraction Polychromasia Hypochromasia PT INR APTT Serum , Qual Specimen Rejected MTS Gel Crossmatch See Detail - Impressions Doing well, ambulating, reg diet without n/v. + flatus. Wearing normal clothes with good color. Date of admission: 02/11/17 14:01 Primary care physician: Magda Ross - Patient Status Disposition: Home, Self-Care Condition: Good Functional capacity at discharge: independent ambulation Overall status at discharge: patient is progressing back to baseline - Discharge Instructions Follow Up With: Barber Stone MD [Partnered Physician] - Additional Instructions: Staple removal 1 week - Diet and Activity Activity: increase activity as tolerated Hospital Course ENGINEER FIRST ASSISTANT Time Attestation: Total time spent providing and/or coordinating discharge services: Exam - Constitutional Vitals: Temp Pulse Resp BP Pulse Ox 98.8 F 89 14 125/73 96 02/12/17 03:20 02/12/17 03:20 02/12/17 03:20 02/12/17 03:20 02/12/17 03:20 General appearance IM: A&O X 3 - Respiratory Respiratory exam: Present: CTAB - Cardiovascular Cardiovascular exam IM: Present: RRR - GI/Abdominal GI/Abdominal exam IM: normal bowel sounds Incision: normal, intact, dressed - Neurological Exam Neurological exam: oriented X3 - VTE Reasons for not Prescribing Prophylaxis: Treatment not Indicated - Low risk for VTE Documentation of Mechanical Device: Intermittent pneumatic compression device
[2017-02-12 12:11] VITALS: BP 120/78
[2017-02-12 14:07] LABS: Basophils % 0.3 %; Eosinophils # 0.1 K/mcL (0.0-0.6); Eosinophils % 1.1 %; Hematocrit 26.9 % (35.3-44.9); Immature Granulocytes % 0.8 % (0-4); Lymphocytes # 0.8 K/mcL (0.6-4.6); Lymphocytes % 8.3 %; Mean Corpuscular HGB Conc 29.7 g/dL (31.6-35.5); Mean Corpuscular Hemoglobin 26.1 pg (28.0-33.3); Mean Corpuscular Volume 87.9 fL (83.0-100.0); Mean Platelet Volume 12.7 fL (9.4-12.4); Monocytes # 0.7 K/mcL (0.0-1.3); Monocytes % 7.9 %; Neutrophils # 7.6 K/mcL (1.6-8.9); Nucleated Red Blood Cells 0.3 /100 WBC (0); Platelet Count 117 K/mcL (140-400); Red Blood Count 3.06 M/mcL (3.82-4.97); Red Cell Distribution Width 17.3 % (11.5-14.5); Segmented Neutrophils % 81.6 %
== END 2017-02-12 15:31 | disposition home or self-care (01) | DRG 743 ==
LOC: 1NENUOBS 21:30 → SAMDAY 21:30
PROVIDERS: ADMIT Obstetrics & Gynecology; ATTEND Obstetrics & Gynecology

== ENCOUNTER 2017-02-23 02:06 | Inpatient (IN) ==
[2017-02-23] MEDS ORDERED: 0.9 % Sodium Chloride 1,000 ML IVC ONE ×2 (04:27→07:03)
[2017-02-23] MEDS ORDERED: Piperacillin/Tazobactam 3.375 GM in D5% in Water (Mini-Bag+) 100 ML IVPB ONE (04:30)
[2017-02-23] MEDS ORDERED: Vancomycin 1,000 MG in D5% in Water 250 ML IVPB ONE (04:30)
--- NOTE | 2017-02-23 04:35 | Emergency Department Note ---
Disposition Clinical Impression: Cellulitis Qualifiers: Site of cellulitis: trunk Site of cellulitis of trunk: abdominal wall Qualified Code(s): L03.311 - Cellulitis of abdominal wall Disposition: Admitted As Inpatient Referrals: Magda Ross CNP [Primary Care Provider] - Forms: ED Satisfaction Letter General Adult HPI - General Chief complaint: ED Skin/Abscess/Foreign Body Stated complaint: cellulitis on abdomen Time Seen by Provider: 02/23/17 03:55 Source: patient Limitations: no limitations Nursing Notes Reviewed: Yes Vital Signs Reviewed: Yes - History of Present Illness HPI Narrative: Patient is here for evaluation of abdominal wound. Patient had a hysterectomy performed by Dr. Stone proximally 2 weeks ago. Patient had some skin erythema that was initially treated with Bactrim however she had worsening of the erythema and was placed on Keflex 500 mg twice a day on . Patient is continued to have worsening symptoms at this point. The entire lower abdomen is red erythematous and indurated. There is a mild purulent drainage out of the left lateral aspect of the abdominal wound. Patient has now spiked a temperature of 100.4 and is tachycardic. Pain Scale: 0 - Related Data Home Medications Medication Instructions Recorded Confirmed Ascorbate Calcium [Vitamin C] 500 mg PO DAILY 02/23/17 02/23/17 Cholecalciferol (D-3) [Vitamin D] 1,000 unit PO DAILY 02/23/17 02/23/17 Docusate [Colace] 100 mg PO BID PRN 02/23/17 02/23/17 OxyCODONE/APAP 5/325 [Percocet 1 tab PO Q4HR PRN 02/23/17 02/23/17 5/325 MG] Previous Rx's Medication Instructions Recorded Ibuprofen [Motrin] 600 mg PO Q6HR PRN #40 tablet 02/12/17 Allergies Allergy/AdvReac Type Severity Reaction Status Date / Time No Known Allergies Allergy Verified 01/27/17 16:02 Review of Systems: CONSTITUTIONAL: Fever and chills No weight loss, weakness or fatigue. HEENT: Eyes: No visual changes. Ears, Nose, Throat: No hearing loss, difficulty talking or unable to swallow. SKIN: Erythema with purulent drainage from the abdomen were CARDIOVASCULAR: No chest pain, chest pressure or chest discomfort. No palpitations or edema. RESPIRATORY: No shortness of breath, cough or sputum. GASTROINTESTINAL: No anorexia, nausea, vomiting or diarrhea. No abdominal pain or blood. GENITOURINARY: No burning on urination or hematuria. NEUROLOGICAL: No headache, dizziness, syncope, paralysis, ataxia, numbness or tingling in the extremities. No change in bowel or bladder control. MUSCULOSKELETAL: No muscle pain, back pain, joint pain or stiffness. Past Medical History - Past Medical History Medical history: Reports: other Surgical history: Reports: other (Was taken to the extraction) Psychiatric history: Reports: no psych history LIQUOR ESTABLISHMENT MANAGER history: Reports: no LIQUOR ESTABLISHMENT MANAGER history - Social History Smoking Status: Current every day smoker Smokeless Tobacco Status: No Alcohol use: Reports: none Drug use: Reports: none Physical Exam General appearance: NAD, conversant Eyes: anicteric sclerae, moist conjunctivae; PERRL HENT: Atraumatic; oropharynx clear with moist mucous membranes and no mucosal ulcerations Neck: Normal inspection; Trachea midline; FROM, supple Lungs: CTA, with normal respiratory effort and no intercostal retractions CV: RRR, no MRGs Abdomen: Erythema with multiple skin marker lesions showing continued increase in the amount of cellulitis. Patient's incision wound now has a mildly purulent drainage over the left lateral aspect. Extremities: No peripheral edema or extremity lymphadenopathy Skin: Normal temperature; no rash, ulcers or lesions Psych: Appropriate mood and affect Neuro: alert and oriented to person, place and time - General Limitations: no limitations General appearance: alert, in no apparent distress Course - Reevaluation(s) Reevaluation #1: Patient's heart rate partially improved after a liter of fluids. - Consultations Consultation #1: Discussed with Dr. Leon. Patient accepted for admission. Vital Signs Temperature 99 F 02/23/17 02:10 Pulse Rate 118 02/23/17 02:10 Respiratory Rate 18 02/23/17 02:10 Blood Pressure 158/92 02/23/17 02:10 O2 Sat by Pulse Oximetry 98 02/23/17 02:10 Temperature 99 F 02/23/17 02:10 Pulse Rate 102 02/23/17 06:05 Respiratory Rate 20 02/23/17 06:05 Blood Pressure 112/60 02/23/17 06:05 O2 Sat by Pulse Oximetry 99 02/23/17 06:05 Oxygen Delivery Oxygen Delivery Room Air Medical Decision Making - Lab Data Result diagrams: 02/23/17 05:39 06/26/17 05:03 Lab Results 02/23/17 02/23/17 02/23/17 Range/Units 05:03 05:25 05:39 WBC 6.7 (4.3-11.1) K/mcL RBC 3.79 L (3.82-4.97) M/mcL Hgb 8.6 L (11.5-15.4) g/dL Hct 30.5 L (35.3-44.9) % MCV 80.5 L D (83.0-100.0) fL MCH 22.7 L (28.0-33.3) pg MCHC 28.2 L (31.6-35.5) g/dL RDW 20.2 H (11.5-14.5) % Plt Count 173 (140-400) K/mcL MPV 11.2 (9.4-12.4) fL Immature Gran % 1.0 (0-4) % Seg Neutrophils % 80.2 % Lymphocytes % 8.8 % Monocytes % 8.2 % Eosinophils % 1.5 % Basophils % 0.3 % Neutrophils # 5.4 (1.6-8.9) K/mcL Lymphocytes # 0.6 (0.6-4.6) K/mcL Monocytes # 0.6 (0.0-1.3) K/mcL Eosinophils # 0.1 (0.0-0.6) K/mcL Basophils # 0.0 (0.0-0.2) K/mcL Reactive Lymphocytes Present A (Not Present) Platelet Estimate Normal (Normal) Immature Plt Fraction 9.8 H (1.1-6.1) % Hypochromasia Present A (Not Present) Anisocytosis 2+ A (Not Present) Microcytosis Present A (Not Present) Sodium 135 L (136-145) mEq/L Potassium 3.7 (3.5-4.5) mEq/L Chloride 103 (98-109) mEq/L Carbon Dioxide 24 (19-29) mEq/L BUN 10 (7-20) mg/dL Creatinine 0.67 (0.57-1.11) mg/dL Est GFR ( Amer) > 60 (> 60) Est GFR (Non-Af Amer) > 60 (> 60) BUN/Creatinine Ratio 15 (6-26) Glucose 126 H (70-99) mg/dL Calculated Osmolality 281 (280-300) Calcium 8.8 (8.6-10.8) mg/dL Specimen Rejected MCV Delta Attestation Statement - Attestation Attestation: I, Chele Marina MD, personally evaluated this patient and discussed their management with the resident physician. I reviewed the resident's note and agree with the documented findings, medical decision making, and plan of care. 46-year-old female presents to the emergency department with a complaint of a postoperative wound infection. Patient had a hysterectomy approximately 12 days ago. She states that a few days after going home she developed some swelling and redness and tenderness above the incision. This is gradually worsened. She was recently started on Keflex and Bactrim. She states that over the weekend the redness pain and swelling has gotten worse and she is now running a fever. Some drainage from the incision. On examination patient is a well-developed obese female in no acute distress. She is alert and oriented 3. There is no cyanosis or diaphoresis. Breath sounds are clear and equal bilaterally. Heart regular with mild tachycardia. Abdomen is soft with normal bowel sounds. There is moderate erythema and induration of the lower abdominal wall above the incision with a small area of purulent drainage from the incision. Labs reviewed. Nurse Executive it infrastructure consultant, Dr. Leon, was consulted and accepted admission of the patient.
[2017-02-23 05:45] LABS: Basophils % 0.3 %; Eosinophils # 0.1 K/mcL (0.0-0.6); Eosinophils % 1.5 %; Hematocrit 30.5 % (35.3-44.9); Hemoglobin 8.6 g/dL (11.5-15.4); Immature Platelets 9.8 % (1.1-6.1); Lymphocytes # 0.6 K/mcL (0.6-4.6); Lymphocytes % 8.8 %; Mean Corpuscular HGB Conc 28.2 g/dL (31.6-35.5); Mean Corpuscular Hemoglobin 22.7 pg (28.0-33.3); Mean Corpuscular Volume 80.5 fL (83.0-100.0); Mean Platelet Volume 11.2 fL (9.4-12.4); Monocytes # 0.6 K/mcL (0.0-1.3); Monocytes % 8.2 %; Neutrophils # 5.4 K/mcL (1.6-8.9); Platelet Count 173 K/mcL (140-400); Red Blood Count 3.79 M/mcL (3.82-4.97); Red Cell Distribution Width 20.2 % (11.5-14.5); Segmented Neutrophils % 80.2 %
[2017-02-23 05:48] LABS: Anisocytosis 2+ (Not Present); Hypochromasia Present (Not Present); Microcytosis Present (Not Present); Platelet Estimate Normal (Normal); Reactive Lymphocytes Present (Not Present)
[2017-02-23 05:58] LABS: BUN/Creatinine Ratio 15 (6-26); Blood Urea Nitrogen 10 mg/dL (7-20); Calcium 8.8 mg/dL (8.6-10.8); Carbon Dioxide 24 mEq/L (19-29); Chloride 103 mEq/L (98-109); Glucose 126 mg/dL (70-99); Osmolality,Calculated 281 (280-300); Potassium 3.7 mEq/L (3.5-4.5); Sodium 135 mEq/L (136-145); eGFR For African Americans > 60 (> 60); eGFR For Non-African Americans > 60 (> 60)
[2017-02-23] MEDS ORDERED: *HR* HYDROmorphone (PF) 1 MG/ML SYRINGE IVP ONE (07:28)
[2017-02-23] MEDS ORDERED: Ondansetron 4 MG/2 ML VIAL IVP ONE (07:28)
[2017-02-23] MEDS ORDERED: *HR* OxyCODONE/APAP 5/325 TABLET PO ONE (07:35)
[2017-02-23] MEDS ORDERED: Ondansetron 4 MG/2 ML VIAL IVP PRN (08:56)
[2017-02-23] MEDS ORDERED: Ringers Solution, Lactated 1,000 ML IVC SCH (09:00)
[2017-02-23] MEDS: Vancomycin 1,500 MG in D5% in Water 250 ML IVPB SCH ×2 (10:10→21:11)
[2017-02-23] MEDS: *HR* OxyCODONE/APAP 5/325 TABLET PO PRN ×3 (12:37→21:56)
[2017-02-23] MEDS: Piperacillin/Tazobactam 3.375 GM in D5% in Water (Mini-Bag+) 100 ML IVPB SCH ×2 (14:29→23:11)
--- NOTE | 2017-02-23 18:55 | OB/GYN History & Physical ---
Date of Encounter: 02/23/17 Time of Encounter: 18:53 Assessment and Plan (1) Cellulitis Current visit: Yes Status: Acute Pt is on Vancomycin and Zosyn, still with low grade fever and incision is quite red and indurated. I used sterile c-tip and was able to get wound to drain. Will cont. atb's. Qualifiers: Site of cellulitis: trunk Site of cellulitis of trunk: abdominal wall Qualified Code(s): L03.311 - Cellulitis of abdominal wall (2) Anemia Current visit: No Status: Acute Stable, pt without orthostatic sx's. Qualifiers: Anemia type: iron deficiency Iron deficiency anemia type: chronic blood loss Qualified Code(s): D50.0 - Iron deficiency anemia secondary to blood loss (chronic) History of Present Illness Chief complaint: Abdominal incision infection HPI: Ms. Olivo is a 46 year old female 12 days status post abdominal hysterectomy for enlarged fibroid uterus with menometrorrhagia and resultant profound anemia presented for admission due to abdominal wound infection that was not getting better on by mouth antibiotics. She was initially put on Bactrim for postop wound infection then this was not getting better she was started on Keflex. No culture were obtained. She now presents with worsening abdominal pain redness more and purulent drainage as well as low-grade fevers. She denies abnormal vaginal bleeding she denies nausea or vomiting. Past Med Surg Social Fam HX - Past Medical History Source: patient Medical history: no medical history, other Psychiatric history: no psych history - Past Surgical History Surgical History: other (Was taken to the extraction) - Social History Smoking Status: Current every day smoker Smokeless Tobacco Status: No Alcohol use: none Drug use: none Obstetrical History - Pregnancies : 2 Para: 2 Medications and Allergies Ibuprofen [Motrin] 600 mg PO Q6HR PRN #40 tablet 02/12/17 [Rx] Ascorbate Calcium [Vitamin C] 500 mg PO DAILY 02/23/17 [History] Cholecalciferol (D-3) [Vitamin D] 1,000 unit PO DAILY 02/23/17 [History] Docusate [Colace] 100 mg PO BID PRN 02/23/17 [History] OxyCODONE/APAP 5/325 [Percocet 5/325 MG] 1 tab PO Q4HR PRN 02/23/17 [History] Allergies No Known Allergies Allergy (Verified 01/27/17 16:02) Exam - Vital Signs Vital signs: Initial Vital Signs Temp Pulse Resp BP Pulse Ox 99 F 118 18 158/92 98 02/23/17 02:10 02/23/17 02:10 02/23/17 02:10 02/23/17 02:10 02/23/17 02:10 - Constitutional Constitutional: well developed, no acute distress - HEENT HEENT: EOMI, PERRL - Neck Neck exam: full ROM - Lungs Respiratory exam: CTAB - Cardiovascular Cardiovascular exam: RRR - Abdomen Abdomen: Present: bowel sounds normal - Comments Comments: Abdominal incision intact with redness warm edema and weeping of brown purulent discharge near the incision Results Result Diagrams: 02/23/17 05:39 02/23/17 05:03 Abnormal lab results RBC 3.79 M/mcL (3.82-4.97) L 02/23/17 05:39 Hgb 8.6 g/dL (11.5-15.4) L 02/23/17 05:39 Hct 30.5 % (35.3-44.9) L 02/23/17 05:39 MCV 80.5 fL (83.0-100.0) L D 02/23/17 05:39 MCH 22.7 pg (28.0-33.3) L 02/23/17 05:39 MCHC 28.2 g/dL (31.6-35.5) L 02/23/17 05:39 RDW 20.2 % (11.5-14.5) H 02/23/17 05:39 Reactive Lymphocytes Present (Not Present) A 02/23/17 05:39 Immature Plt Fraction 9.8 % (1.1-6.1) H 02/23/17 05:39 Hypochromasia Present (Not Present) A 02/23/17 05:39 Anisocytosis 2+ (Not Present) A 02/23/17 05:39 Microcytosis Present (Not Present) A 02/23/17 05:39 Sodium 135 mEq/L (136-145) L 02/23/17 05:03 Glucose 126 mg/dL (70-99) H 02/23/17 05:03 All other labs normal. - VTE Reasons for not Prescribing Prophylaxis: Treatment not Indicated - Low risk for VTE
[2017-02-24] MEDS: *HR* OxyCODONE/APAP 5/325 TABLET PO PRN ×3 (02:02→15:33)
[2017-02-24] MEDS: Piperacillin/Tazobactam 3.375 GM in D5% in Water (Mini-Bag+) 100 ML IVPB SCH ×2 (06:09→14:59)
[2017-02-24] MEDS ORDERED: Aminoglycoside Consult 1 EACH MC ONE (09:48)
[2017-02-24 10:00] LABS: Hemoglobin 8.5 g/dL (11.5-15.4); Red Cell Distribution Width 20.3 % (11.5-14.5)
[2017-02-24 10:02] LABS: Basophils % 0.4 %; Eosinophils # 0.3 K/mcL (0.0-0.6); Eosinophils % 4.7 %; Hematocrit 30.4 % (35.3-44.9); Immature Granulocytes % 0.4 % (0-4); Lymphocytes # 0.4 K/mcL (0.6-4.6); Lymphocytes % 7.9 %; Mean Corpuscular Hemoglobin 22.7 pg (28.0-33.3); Mean Corpuscular Volume 81.1 fL (83.0-100.0); Monocytes # 0.3 K/mcL (0.0-1.3); Monocytes % 5.6 %; Neutrophils # 4.3 K/mcL (1.6-8.9); Platelet Count 182 K/mcL (140-400); Red Blood Count 3.75 M/mcL (3.82-4.97)
[2017-02-24 10:27] LABS: Microcytosis Present (Not Present)
[2017-02-24 10:28] LABS: Anisocytosis 1+ (Not Present); Hypochromasia Present (Not Present); Ovalocytes 1+ (Not Present); Platelet Estimate Slight Decrease (Normal)
[2017-02-24] MEDS: Ibuprofen 600 MG TABLET PO PRN ×2 (10:36→22:22)
[2017-02-24] MEDS: Vancomycin 1,500 MG in D5% in Water 250 ML IVPB SCH ×2 (10:37→22:22)
--- NOTE | 2017-02-24 14:18 | Infectious Disease Consult ---
Date of Encounter: 02/24/17 Time of Encounter: 14:14 Assessment and Plan (1) Cellulitis Status: Acute Assessment and plan: Location: Lower abdomen. Causative organism unclear. Likely secondary to surgical wound infection. Failed outpatient oral antibiotic therapy. Wound cultures obtained and pending. Blood cultures pending x 3 sets. The patient has no SIRS criteria. The patient reports minimal improvement since starting IV antibiotics. Get CT scan with IV contrast to evaluate for abscess. Continue Vancomycin IV. Pharmacy to dose. Goal trough approximately 15. Continue Zosyn 3.375 grams IV Q8H. De-escalate if/when able based on cultures and clinical picture. Duration of treatment depends on the clinical picture. Monitor renal function and for drug toxicity and dose-adjust antibiotics. Qualifiers: Site of cellulitis: trunk Site of cellulitis of trunk: abdominal wall Qualified Code(s): L03.311 - Cellulitis of abdominal wall (2) Surgical wound infection Status: Acute Assessment and plan: Location: Lower abdomen. Status post partial hysterectomy [address] Stone due to uterine fibroids and anemia. Causative organism unclear. Wound culture pending. Continue antibiotics as above. Qualifiers: Encounter type: initial encounter Qualified Code(s): T81.4XXA - Infection following a procedure, initial encounter (3) S/p partial hysterectomy with remaining cervical stump Status: Acute (4) Anemia Status: Acute Qualifiers: Anemia type: iron deficiency Iron deficiency anemia type: chronic blood loss Qualified Code(s): D50.0 - Iron deficiency anemia secondary to blood loss (chronic) Infectious Disease HPI - Data of Consult Patient: new to practice Consult date: 02/24/17 Requesting Physician: Praneeth Leon MD Primary Care Provider: Magda Ross - Consult Narrative Reason for consult: Abdominal cellulitis History of present illness: Ms. Olivo is a 46 year old female with a past medical history of uterine fibroids status post partial hysterectomy 02/11/17. The patient was admitted to the hospital 02/23/17 for cellulitis of the abdomen. We are consulted 02/24/17 for further evaluation and treatment recommendations for abdominal cellulitis. Patient's a 46 year old with a past medical history as stated above. The patient presented to the ER with complaints of abdominal pain, redness, and surgical wound drainage. The patient states she began to experience erythema of the abdomen just below the umbilicus. She was started on Keflex and Bactrim and the erythema worsened. She states 48 hours after starting the antibiotics, the erythema improved, but she started having drainage from her surgical site over the weekend and she presented to the ED. Upon arrival, the patient was afebrile and hemodynamically stable. Labs revealed a normal WBC. Wound culture and blood cultures x 3 sets were obtained and are pending. The patient was started on empiric IV antibiotics and was admitted for further evaluation and treatment. Since admission, the patient has remained afebrile and hemodynamically stable. She states that the erythema has improved some since starting IV antibiotics, but she continues to have drainage from the wound. She denies any fevers, chills , or rigors, but states she has been taking Motrin ATC for pain since surgery. She denies any headache, neck pain, dizziness, fatigue, or malaise. She denies any chest pain, shortness of breath, or cough. She denies any nausea, vomiting, diarrhea, or appetite changes. She denies pain elsewhere. We've been asked to evaluate and make further recommendations. The patient lives at home with her and kids. She reports she has two inside/outside dogs. She denies any recent travel. She denies any alcohol, tobacco, or illicit drug use. CC: Praneeth Leon MD Past Med Surg Social Fam HX - Past Medical History Attestation: Yes The following information was validated with the patient. 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[employer]) Activity Level: Independent ambulation Recent Out of Country Travel Within the Last 8 Weeks: No Exposure or Possible Exposure to Illness During Travel: No Infectious Disease-CN:Meds Ibuprofen [Motrin] 600 mg PO Q6HR PRN #40 tablet 02/12/17 [Rx] Ascorbate Calcium [Vitamin C] 500 mg PO DAILY 02/23/17 [History] Cholecalciferol (D-3) [Vitamin D] 1,000 unit PO DAILY 02/23/17 [History] Docusate [Colace] 100 mg PO BID PRN 02/23/17 [History] OxyCODONE/APAP 5/325 [Percocet 5/325 MG] 1 tab PO Q4HR PRN 02/23/17 [History] Allergies No Known Allergies Allergy (Verified 01/27/17 16:02) All systems: reviewed and no additional remarkable complaints except as stated Exam - Constitutional Vitals: Temp Pulse Resp BP Pulse Ox 97.6 F 84 20 108/70 97 02/24/17 08:04 02/24/17 08:04 02/24/17 03:42 02/24/17 08:04 02/24/17 08:04 General appearance: cooperative, no acute distress, obese - Head Head exam: Present: atraumatic, normal inspection, normocephalic - Eye Eye exam: Present: EOMI, normal appearance Pupils: Present: normal accommodation, PERRL - ENT ENT exam: Present: mucous membranes moist - Neck Neck exam: Present: normal inspection - Respiratory Respiratory exam: Present: CTAB. Absent: rales, rhonchi, wheezes, tachypnea - Cardiovascular Cardiovascular exam: Present: RRR, +S1, +S2 - GI/Abdominal GI/Abdominal exam: Present: distended (obese), normal bowel sounds, soft, tenderness (lower abdominal incision.) Additional comments: Erythema noted from the lower abdominal incision up to the umbilicus. Surgical incision with small amount of purulent drainage noted. No foul odor. Lower abdomen markedly erythematous and indurated and tender to palpation. - Extremities Exam Extremities exam: Present: normal inspection, pedal edema (Trace BLE). Absent: tenderness - Neurological Exam Neurological exam: Present: alert, oriented X3, no focal deficits - Psychiatric Psychiatric exam: Present: normal affect, normal mood - Skin Skin exam: Present: dry, erythema (lower abdomen), intact, normal color, warm Infectious Disease CN: Results - Labs CBC & Chem 7: 02/24/17 09:25 02/23/17 05:03 - VTE Reasons for not Prescribing Prophylaxis: Treatment not Indicated - Low risk for VTE Consult Discharge Plan - Plan Referrals: Magda Ross, EXTRACTIONS TECHNICIAN [Primary Care Provider] - - Attending Attestation I examined this patient and my medical decision-making was reviewed with the NUTRITION SERVICES WORKER/PA/Advanced Practice Nurse/Resident Physician. I agree with the documented findings, disposition and treatment plan as described except to the extent set forth below. This is an addendum to original report dictated by Charlette Washington CNP. Please refer to Leon note for full detail. Patient is a 46-year-old woman who was admitted to [facility] post hysterectomy 2 weeks ago due to uterine fibroids and anemia with surgical wound infection. Apparently patient has been having erythema around her wound, initially she was treated with Keflex but the erythema did not improve. Patient was given a course of Bactrim and really that did not help as well so physician recommended patient gets admitted and treated with IV antibiotics and we were consulted. Patient was started on empiric vancomycin and Zosyn, cultures from the wound were obtained. We recommended a CT of the abdomen pelvis to be done and the CT showed significant subcutaneous stranding in fluid within the anterior lower abdomen and pelvis with overlying skin thickening compatible with known history of cellulitis. No drainable fluid collection. Cultures are still pending and patient continues to be on vancomycin and Zosyn. At this point will continue current antibiotics, once cultures finalize well make further recommendations on what antibiotics to use and if he can switch her to orals. Monitor labs and for drug toxicity Thank you for allowing us to per to spit in the management of this patient.
[2017-02-25] MEDS: Piperacillin/Tazobactam 3.375 GM in D5% in Water (Mini-Bag+) 100 ML IVPB SCH ×4 (00:37→22:08)
[2017-02-25] MEDS: *HR* OxyCODONE/APAP 5/325 TABLET PO PRN ×3 (00:49→14:23)
--- NOTE | 2017-02-25 00:53 | OB/GYN Progress Note ---
Date of Encounter: 02/24/17 Time of Encounter: 08:00 - Assessment and Plan (1) Cellulitis Current Visit: Yes Status: Acute Pt is on Vancomycin and Zosyn, still with low grade fever and incision is quite red and indurated. I used sterile c-tip and was able to get wound to drain. Will cont. atb's. 02/24/17 8:05-Still with significant redness and edema,some drainage created by q tip, D/w Ostomy nurse and she advised maxorb AU dressing. Will consult ID, consider CT 02/25 00:58- Pt asked to see me because she felt like left aspect of wound was more swollen. Overall the wound is less edematous and the red boarder is slightly improved. Sterile q tip used to drain 12-15 cc of thin brown drainge. Of note CT showed no abscess. Qualifiers: Site of cellulitis: trunk Site of cellulitis of trunk: abdominal wall Qualified Code(s): L03.311 - Cellulitis of abdominal wall (2) Anemia Current Visit: No Status: Acute Stable, pt without orthostatic sx's. Qualifiers: Anemia type: iron deficiency Iron deficiency anemia type: chronic blood loss Qualified Code(s): D50.0 - Iron deficiency anemia secondary to blood loss (chronic) Subjective - Subjective Principal diagnosis: Post op cellulitis, 15 days post op Interval history: Pt continues to have significant redness, not really expading and some less edema. Still quite tender. No fever or chills. Objective - Vital Signs Latest vital signs: Vital Signs Temp Pulse Resp BP Pulse Ox 02/24/17 22:33 99.0 F 94 16 115/74 97 02/24/17 17:05 98.7 F 18 02/24/17 08:04 97.6 F 84 108/70 97 02/24/17 03:42 98.4 F 87 20 107/69 96 Intake and Output 02/24/17 02/24/17 02/25/17 15:59 23:59 07:59 Intake Total 1110 / 1110 220 / 220 Output Total 600 / 600 1050 / 1050 Balance 510 / 510 -830 / -830 Intake: IV Fluids 350 / 350 100 / 100 Zosyn 3.375 GM In 100 / 100 100 / 100 Dextrose 5% (Minibag+) 100 ML 100 ML @ 25 mls/hr IVPB Q8H [facility] Rx#: [id number] Vancocin 1,500 MG In 250 / 250 Dextrose 5% 250 ML @ 167 mls/hr IVPB Q12H [facility] Rx#: [id number] Oral 760 / 760 120 / 120 Output: Urine 600 / 600 1050 / 1050 Other: Meal Lunch Dinner Percent of Meal Consumed 100% 100% Stool Size Moderate Stool Characteristics Normal for Patient Normal for Patient - I&O's I&O's: Intake & Output 02/22/17 02/23/17 02/24/17 02/25/17 23:59 23:59 23:59 23:59 Intake Total 1460 / 1460 1430 / 1430 Output Total 1900 / 1900 2350 / 2350 Balance -440 / -440 -920 / -920 Weight 90.8 kg - Exam Lungs: bilateral: normal Chest: Normal S1, Normal S2 Abdomen: Present: tenderness Incision OB: Present: erythematous, suppurative, edematous, intact, warm Comments: Sterile q tip placed in central aspect of wound and 10 cc of brown purulent drainage noted. - Labs Labs: Abnormal lab results RBC 3.75 M/mcL (3.82-4.97) L 02/24/17 09:25 Hgb 8.5 g/dL (11.5-15.4) L 02/24/17 09:25 Hct 30.4 % (35.3-44.9) L 02/24/17 09:25 MCV 81.1 fL (83.0-100.0) L 02/24/17 09:25 MCH 22.7 pg (28.0-33.3) L 02/24/17 09:25 MCHC 28.0 g/dL (31.6-35.5) L 02/24/17 09:25 RDW 20.3 % (11.5-14.5) H 02/24/17 09:25 Lymphocytes # 0.4 K/mcL (0.6-4.6) L 02/24/17 09:25 Reactive Lymphocytes Present (Not Present) A 02/23/17 05:39 Platelet Estimate Slight Decrease (Normal) L 02/24/17 09:25 Immature Plt Fraction 9.8 % (1.1-6.1) H 02/23/17 05:39 Hypochromasia Present (Not Present) A 02/24/17 09:25 Anisocytosis 1+ (Not Present) A 02/24/17 09:25 Microcytosis Present (Not Present) A 02/24/17 09:25 Ovalocytes 1+ (Not Present) A 02/24/17 09:25 Sodium 135 mEq/L (136-145) L 02/23/17 05:03 Glucose 126 mg/dL (70-99) H 02/23/17 05:03 Vancomycin Trough 9.8 mcg/mL (10-20) L 02/24/17 21:06 Consult Discharge Plan - Plan Referrals: Magda Ross, [facility] [Primary Care Provider] -
[2017-02-25] MEDS: Ibuprofen 600 MG TABLET PO PRN ×3 (10:34→22:07)
--- NOTE | 2017-02-25 10:36 | Infectious Disease Progress No ---
Date of Encounter: 02/25/17 Time of Encounter: 10:34 - Assessment and Plan (1) Cellulitis Current Visit: Yes Status: Acute Location: Lower abdomen. Causative organism unclear. Wound culture pending, gram stain shows GNR. Likely secondary to surgical wound infection. Failed outpatient oral antibiotic therapy. Blood cultures drawn 02/23/17 are NGTD x 2 sets. The patient has no SIRS criteria. The patient reports improvement this morning. CT scan shows findings consistent cellulitis, but no abscess or fluid collection. Continue Vancomycin IV for now until cultures finalize. Pharmacy to dose. Goal trough approximately 15. Continue Zosyn 3.375 grams IV Q8H. De-escalate if/when able based on cultures and clinical picture. The patient is anxious to go home. Would recommend considering another 24 hours of IV antibiotics and observation for continued improvement before discharge. This will also allow time for the wound culture to finalize to further direct antibiotic therapy. Will likely be able to transition to PO antibiotics when ready for discharge. Duration of treatment depends on the clinical picture. Monitor renal function and dose-adjust antibiotics. Qualifiers: Site of cellulitis: trunk Site of cellulitis of trunk: abdominal wall Qualified Code(s): L03.311 - Cellulitis of abdominal wall (2) Surgical wound infection Current Visit: Yes Status: Acute Location: Lower abdomen. Status post partial hysterectomy [address] Stone due to uterine fibroids and anemia. Causative organism unclear. Wound culture pending. Gram stain shows GNR. Continue antibiotics as above. Qualifiers: Encounter type: initial encounter Qualified Code(s): T81.4XXA - Infection following a procedure, initial encounter (3) S/p partial hysterectomy with remaining cervical stump Current Visit: No Status: Acute (4) Anemia Current Visit: No Status: Acute Qualifiers: Anemia type: iron deficiency Iron deficiency anemia type: chronic blood loss Qualified Code(s): D50.0 - Iron deficiency anemia secondary to blood loss (chronic) - Subjective Interval history: Patient seen and examined. No acute events noted overnight. Patient ambulating in the room upon my arrival. Denies any new complaints. States overall she feels better and thinks that the cellulitis is improved. Denies any fevers or chills or rigors. Denies any chest pain, shortness of breath, or cough. Denies any nausea, vomiting, diarrhea, or constipation. Reports a soft bowel movement this morning. Denies any urinary complaints. Reports improved pain around the abdominal cellulitis. Reports less drainage from the wound. Denies any oral thrush or any skin lesions. Infect Dis PN-Objective Data - Labs CBC & Chem 7: 02/24/17 09:25 02/23/17 05:03 Labs: Laboratory Results - last 24 hr 02/24/17 21:06 Vancomycin Trough 9.8 L Cultures: Cultures 02/23/17 05:10 Blood Culture - Preliminary Peripheral Venipuncture No growth. 02/23/17 05:03 Blood Culture - Preliminary Peripheral Venipuncture No growth. 02/23/17 04:35 Wound Culture - Preliminary Abdomen Gram Negative Drake - Impressions Impressions Abdomen/Pelvis CT 02/24/17 16:30 IMPRESSION: 1. Postsurgical changes from interval hysterectomy. There is a trace amount of free pelvic fluid with some central positioning of the ovaries. Recommend correlation with operative report. 2. Subcutaneous stranding and fluid within the anterior lower abdomen and pelvis with overlying skin thickening compatible with known history of cellulitis. No drainable fluid collection. 3. Mild splenomegaly. D/ / 02/24/2017 17:15:29 Mellissa Kaiser MD / pedro luis Interpreting Provider: Mellissa Kaiser MD Exam - Constitutional Vitals: Temp Pulse Resp BP Pulse Ox 98.5 F 78 16 109/73 96 02/25/17 08:46 02/25/17 08:46 02/25/17 08:46 02/25/17 08:46 02/25/17 04:00 General appearance: cooperative, no acute distress, obese - Head Head exam: Present: atraumatic, normal inspection, normocephalic - Eye Eye exam: Present: EOMI, normal appearance, PERRL Pupils: Present: normal accommodation - ENT ENT exam: Present: mucous membranes moist - Neck Neck exam: Present: normal inspection - Respiratory Respiratory exam: Present: CTAB. Absent: rales, respiratory distress, rhonchi, wheezes - Cardiovascular Cardiovascular exam: Present: RRR, +S1, +S2 - GI/Abdominal GI/Abdominal exam: Present: distended (Obese), normal bowel sounds, soft. Absent: tenderness Additional comments: Lower abdominal surgical wound with small area of wound dehiscence with a small amount of dark yellow purulent drainage noted. No foul odor. Erythema surrounding the incision extending up to approximately 3 cm below the umbilicus. Improved since prior exam. Area of hard induration remains to the lower abdomen just superior to the surgical incision. - Extremities Exam Extremities exam: Present: normal inspection. Absent: joint swelling, pedal edema, tenderness - Neurological Exam Neurological exam: Present: alert, oriented X3, no focal deficits - Psychiatric Psychiatric exam: Present: normal affect, normal mood - Skin Skin exam: Present: dry, erythema (Abdomen), intact, normal color, warm - VTE Reasons for not Prescribing Prophylaxis: Treatment not Indicated - Low risk for VTE Consult Discharge Plan - Plan Referrals: Magda Ross CNP [Primary Care Provider] - - Attending Attestation I examined this patient and my medical decision-making was reviewed with the QUILTING MACHINE OPERATOR/PA/Advanced Practice Nurse/Resident Physician. I agree with the documented findings, disposition and treatment plan as described except to the extent set forth below.
[2017-02-26] MEDS: *HR* OxyCODONE/APAP 5/325 TABLET PO PRN (03:08)
[2017-02-26] MEDS: Ibuprofen 600 MG TABLET PO PRN (03:54)
[2017-02-26] MEDS: Piperacillin/Tazobactam 3.375 GM in D5% in Water (Mini-Bag+) 100 ML IVPB SCH (06:16)
[2017-02-26 08:34] VITALS: BP 117/77
--- NOTE | 2017-02-26 11:05 | Discharge Summary ---
Date of Encounter: 02/26/17 Time of Encounter: 11:06 - Discharge Diagnosis (1) Cellulitis Priority: Primary Status: Acute Comments: Incision much iimproved. Culture came back positive for Klebsiella and sensitive to Cipro. Will D/c home on Cipro with f/u in one week. Qualifiers: Site of cellulitis: trunk Site of cellulitis of trunk: abdominal wall Qualified Code(s): L03.311 - Cellulitis of abdominal wall (2) Anemia Priority: Secondary Status: Acute Qualifiers: Anemia type: iron deficiency Iron deficiency anemia type: chronic blood loss Qualified Code(s): D50.0 - Iron deficiency anemia secondary to blood loss (chronic) - Discharge Medications Prescriptions: Ciprofloxacin [Cipro] 500 mg PO BID PRN #20 tablet PRN Reason: infection Home Medications: Ibuprofen [Motrin] 600 mg PO Q6HR PRN #40 tablet 02/12/17 [Rx] Ascorbate Calcium [Vitamin C] 500 mg PO DAILY 02/23/17 [History] Cholecalciferol (D-3) [Vitamin D] 1,000 unit PO DAILY 02/23/17 [History] Docusate [Colace] 100 mg PO BID PRN 02/23/17 [History] OxyCODONE/APAP 5/325 [Percocet 5/325 MG] 1 tab PO Q4HR PRN 02/23/17 [History] Ciprofloxacin [Cipro] 500 mg PO BID PRN #20 tablet 02/26/17 [Rx] Allergies/Adverse Reactions: Allergies No Known Allergies Allergy (Verified 01/27/17 16:02) Data - Impressions Pt doing well, ambulating and taking reg diet. Date of admission: 02/26/17 07:46 Primary care physician: Magda Ross - Patient Status Disposition: Home, Self-Care Functional capacity at discharge: independent ambulation Overall status at discharge: patient is progressing back to baseline - Discharge Instructions Follow Up With: Barber Stone MD [Partnered Physician] - Additional Instructions: f/u one week - Diet and Activity Activity: increase activity as tolerated Diet: advance to your usual diet Hospital Course ROAD PACKER OPERATOR Time Attestation: Total time spent providing and/or coordinating discharge services: Exam - Constitutional Vitals: Temp Pulse Resp BP Pulse Ox 98.3 F 88 16 117/77 98 02/26/17 07:50 02/26/17 07:50 02/26/17 07:50 02/26/17 07:50 02/26/17 07:50 General appearance IM: A&O X 3 - Respiratory Respiratory exam: Present: CTAB - Cardiovascular Cardiovascular exam IM: Present: RRR - GI/Abdominal GI/Abdominal exam IM: normal bowel sounds Incision: erythematous, dry, intact Additional comments: Incison much improved, much less redness - Extremities Exam Extremities exam IM: Present: full ROM - Neurological Exam Neurological exam: oriented X3 - VTE Reasons for not Prescribing Prophylaxis: Treatment not Indicated - Low risk for VTE
== END 2017-02-26 11:48 | disposition home or self-care (01) | DRG 863 ==
LOC: EMEROO 02:06 → 1NENUPED 02:06
PROVIDERS: ADMIT Obstetrics & Gynecology; ATTEND Obstetrics & Gynecology